=== PATIENT | male | born 1970 | race Caucasian/White ===

== ENCOUNTER 2016-11-14 07:48 | Emergency (ER) | payer SELFPAY | END 2016-11-14 08:47 | disposition home or self-care (01) | LOC: D.ER 07:48 | DX: K08.89 Other specified disorders of teeth and supporting structures (principal); K02.9 Dental caries, unspecified ==

== ENCOUNTER 2016-12-18 11:45 | Emergency (ER) | payer SELFPAY | END 2016-12-18 13:15 | disposition home or self-care (01) | LOC: D.ER 11:45 | DX: L02.416 Cutaneous abscess of left lower limb (principal); L03.116 Cellulitis of left lower limb; L03.011 Cellulitis of right finger; F17.200 Nicotine dependence, unspecified, uncomplicated ==

== ENCOUNTER 2018-01-26 18:41 | Inpatient (IN) | payer MEDICAID ==
[~2018-01-26] VITALS: Ht 180.3 cm; Wt 62.7 kg
[2018-01-26 20:01] VITALS: BP 105/61
[2018-01-26 20:25] LABS: BASOPHILS 0.1 % (0-2); EOSINOPHILS 0.1 % (0-7); HEMATOCRIT 34.8 % (42.0-54.0); HEMOGLOBIN 11.8 g/dL (13.5-17.5); IMMATURE GRANULOCYTES 0.4 % (0-5); LYMPHOCYTES 6.8 % (15-50); MCHC 33.9 g/dL (31.0-37.0); MCV 85.5 fL (80.0-100.0); MEAN PLATELET VOLUME 9.5 fL (7.4-10.4); MONOCYTES 8.7 % (2-11); NEUTROPHILS 83.9 % (40-80); PLATELET COUNT 232 10x3/uL (130-400); RBC 4.07 10x6/uL (4.20-6.10); RDW 13.3 % (11.5-14.5); WBC 19.5 10x3/uL (4.8-10.8)
[2018-01-26 20:41] LABS: ALBUMIN 3.5 g/dL (3.4-5.0); ALKALINE PHOSPHATASE 63 U/L (46-116); ALT (SGPT) 29 U/L (10-68); BILIRUBIN - TOTAL 0.51 mg/dL (0.2-1.3); CALC OSMOLALITY 266 mosm/kg (275-300); CALCIUM 8.1 mg/dL (8.5-10.1); CARBON DIOXIDE 28.7 mmol/L (21.0-32.0); CHLORIDE - SERUM 99 mmol/L (98-107); GLUCOSE 113 mg/dL (74-106); POTASSIUM - SERUM 3.7 mmol/L (3.5-5.1); PROTEIN - SERUM 6.9 g/dL (6.4-8.2); SODIUM 132 mmol/L (136-145); UREA NITROGEN 15 mg/dL (7-18); eGFR NON AFRICAN AMERICAN 85 mL/min (90-120)
[2018-01-26 21:00] VITALS: BP 111/60
[2018-01-27 00:27] VITALS: BP 107/59; BMI 19.2
[2018-01-27 05:12] VITALS: BP 115/49
[2018-01-27 08:14] VITALS: BP 104/52
[2018-01-27 08:56] VITALS: Ht 180.3 cm; Wt 62.7 kg
[2018-01-27 12:02] VITALS: BP 102/60
[2018-01-27 17:01] VITALS: BP 112/57
[2018-01-27 22:14] VITALS: BP 113/72
[2018-01-28 06:02] LABS: BASOPHILS 0.1 % (0-2); EOSINOPHILS 0.7 % (0-7); HEMATOCRIT 35.5 % (42.0-54.0); HEMOGLOBIN 11.9 g/dL (13.5-17.5); IMMATURE GRANULOCYTES 0.1 % (0-5); LYMPHOCYTES 12.1 % (15-50); MCH 28.8 pg (26.0-34.0); MCHC 33.5 g/dL (31.0-37.0); MEAN PLATELET VOLUME 9.7 fL (7.4-10.4); MONOCYTES 7.3 % (2-11); NEUTROPHILS 79.7 % (40-80); PLATELET COUNT 212 10x3/uL (130-400); RBC 4.13 10x6/uL (4.20-6.10); RDW 13.6 % (11.5-14.5); WBC 14.8 10x3/uL (4.8-10.8)
[2018-01-28 06:12] LABS: CALC OSMOLALITY 280 mosm/kg (275-300); CALCIUM 8.2 mg/dL (8.5-10.1); CARBON DIOXIDE 27.3 mmol/L (21.0-32.0); CHLORIDE - SERUM 106 mmol/L (98-107); CREATININE - SERUM 0.9 mg/dL (0.6-1.3); GLUCOSE 108 mg/dL (74-106); POTASSIUM - SERUM 3.4 mmol/L (3.5-5.1); SODIUM 141 mmol/L (136-145); eGFR NON AFRICAN AMERICAN > 90 mL/min (90-120)
[2018-01-28 06:13] LABS: UREA NITROGEN 11 mg/dL (7-18)
[2018-01-28 06:24] VITALS: BP 148/74
[2018-01-28 08:24] VITALS: BP 109/77
[2018-01-28 12:42] VITALS: BP 114/64
[2018-01-28 16:02] VITALS: BP 117/75
[2018-01-28 20:00] VITALS: BP 126/78
[2018-01-29 04:56] VITALS: BP 106/70
[2018-01-29 06:09] LABS: BASOPHILS 0.3 % (0-2); EOSINOPHILS 3.6 % (0-7); HEMATOCRIT 37.8 % (42.0-54.0); HEMOGLOBIN 12.6 g/dL (13.5-17.5); IMMATURE GRANULOCYTES 0.2 % (0-5); LYMPHOCYTES 17.5 % (15-50); MCH 28.7 pg (26.0-34.0); MCHC 33.3 g/dL (31.0-37.0); MCV 86.1 fL (80.0-100.0); MEAN PLATELET VOLUME 9.9 fL (7.4-10.4); NEUTROPHILS 69.4 % (40-80); PLATELET COUNT 245 10x3/uL (130-400); RBC 4.39 10x6/uL (4.20-6.10); RDW 13.7 % (11.5-14.5)
[2018-01-29 06:30] LABS: WBC 9.9 10x3/uL (4.8-10.8)
[2018-01-29 06:32] LABS: CALC OSMOLALITY 278 mosm/kg (275-300); CALCIUM 8.3 mg/dL (8.5-10.1); CARBON DIOXIDE 29.5 mmol/L (21.0-32.0); CHLORIDE - SERUM 104 mmol/L (98-107); CREATININE - SERUM 0.8 mg/dL (0.6-1.3); GLUCOSE 96 mg/dL (74-106); POTASSIUM - SERUM 3.7 mmol/L (3.5-5.1); SODIUM 140 mmol/L (136-145); UREA NITROGEN 12 mg/dL (7-18); eGFR NON AFRICAN AMERICAN > 90 mL/min (90-120)
[2018-01-29] MEDS ORDERED: LEVAQUIN750 MG PO (08:06)
[2018-01-29] MEDS ORDERED: PROAIR HFA8.5 GM INH (08:07)
== END 2018-01-29 13:08 | disposition home or self-care (01) | DRG 195 ==
LOC: D.ER 18:41 → D.MS 22:01
PROVIDERS: Emergency Medicine; Family Medicine
DX: J18.9 Pneumonia, unspecified organism (principal); Z72.0 Tobacco use